=== PATIENT | female | born 1970 | race Caucasian/White ===

== ENCOUNTER 2018-03-14 21:43 | Inpatient (IN) ==
[2018-03-14 22:23] LABS: BASO# 0.02 X1000 (0.0-0.2); BASO% 0.2 % (0.0-0.8); EOS# 0.02 X1000 (0.0-0.7); EOS% 0.2 % (0.0-10.0); HEMOGLOBIN 12.4 g/dL (12.0-16.0); LYMPH% 8.4 % (20.5-51.1); MCH 27.3 PG (27-31); MCHC 32.6 g/dL (33-37); MCV 83.7 FL (81-99); MONO# 0.54 X1000 (0.11-0.59); MONO% 6.5 % (1.7-9.3); MPV 10.6 FL (7.4-10.4); NEUT# 7.01 X1000 (1.4-6.5); NEUT% 84.7 % (42.2-75.2); PLT 462 X1000 (130-400); RBC 4.54 XMIL (4.2-5.4); RDW 21.7 % (11.5-14.5); WBC 8.29 X1000 (4.8-10.8)
[2018-03-14 22:37] LABS: ESTIMATED GFR > 60
[2018-03-14] MEDS ORDERED: NS 1,000 ML IV ONE (22:58)
[2018-03-14] MEDS ORDERED: STADOL IV ONE (22:59)
[2018-03-14] MEDS ORDERED: ZOFRAN IV ONE (22:59)
[2018-03-14 23:06] LABS: AGAP 21; ALB/GLOB RATIO 1.4; ALBUMIN 4.7 g/dL (3.5-5.0); ALKALINE PHOSPHATASE 115 U/L (32-104); BUN 8 mg/dL (8-22); CALCIUM 9.2 mg/dL (8.8-10.2); CHLORIDE 89 mmol/L (98-107); COSMO 264; CREATININE 0.5 mg/dL (0.5-0.9); GLUCOSE 113 mg/dL (70-104); GOT 53 U/L (10-30); GPT 30 U/L (10-36); LIPASE 25 U/L (13-60); POTASSIUM 3.2 mmol/L (3.5-5.1); SODIUM 132 mmol/L (136-145); TCO2 22 mmol/L (25-35); TOTAL BILIRUBIN 0.26 mg/dL (0.20-1.00); TOTAL PROTEIN 8.1 g/dL (6.3-8.3)
[2018-03-15] MEDS ORDERED: STADOL IV ONE (00:26)
--- NOTE | 2018-03-15 00:27 | PROVIDER DOCUMENTATION ---
HPI-Abdominal Pain/GI Problem - General Chief Complaint: Abdominal Pain Stated Complaint: abd pain Time Seen by Provider: 03/14/18 22:31 Source: patient Allergies/Adverse Reactions: Patient Allergies Allergy/AdvReac Type Severity Reaction Status Date / Time morphine AdvReac Severe HIVES Verified 12/13/16 10:37 hydromorphone [From Dilaudid] AdvReac HIVES Verified 12/13/16 10:38 Home Medications: Home Medication List Medication Instructions Recorded Confirmed Last Taken Type Alprazolam [Xanax] 0.5 mg PO PRN PRN 12/13/16 02/24/17 02/24/17 History Iron,Carbonyl [Iron] 65 mg PO DAILY 12/13/16 02/24/17 02/23/17 History Lisinopril/Hydrochlorothiazide 1 each PO DAILY 12/13/16 02/24/17 02/24/17 History [Lisinopril-Hctz 20-12.5 mg Tab] Sertraline HCl [Zoloft] 100 mg PO HS 12/13/16 02/24/17 02/23/17 History - History of Present Illness-ABD Nature of Presenting Problems: Patient is a 47 yowf who complains of generalized abdominal pain associated with n/v x 3 hours. Denies fever or any other symptoms. Pt is non-toxic in appearance. Had hysterectomy by Dr. Ramon 2 months ago. Abdominal Pain Onset Location: reports: generalized abdomen Pain Radiation: reports: no radiation Quality of Pain: reports: stabbing Severity in ED: reports: severe Onset/Duration: reports: 1-3 hours ago Timing: reports: still present, getting worse Activities at Onset: reports: none Last BM: this afternoon Dark Stools Present?: reports: none noticed Rectal Bleeding: reports: none Rectal Pain: reports: none Review of Systems - Adult - REVIEW OF SYSTEMS - ADULT Constitutional: denies: chills, fever Eyes: reports: no symptoms reported Ears, Nose, Mouth & Throat: reports: no symptoms reported Cardiovascular: reports: no symptoms reported Respiratory: reports: no symptoms reported Gastrointestinal: reports: see HPI, abdominal pain, nausea, vomiting. denies: hematemesis, constipation, diarrhea Genitourinary: denies: dysuria, flank pain Musculoskeletal: reports: no symptoms reported Integumentary: reports: no symptoms reported Neurological: reports: no symptoms reported Psychiatric: reports: no symptoms reported Endocrine: reports: no symptoms reported Hematologic/Lymphatic: reports: no symptoms reported Allergic/Immunologic: reports: no symptoms reported All Other Systems: Reviewed and Negative Past History - Adult - PAST MEDICAL HISTORY-ADULT Review of Records: reports: Old Records Reviewed, Nursing Assessment Review, Medications Reviewed, Social history reviewed & non-contributory. Major Childhood Illnesses: reports: denies history Cardiovascular: reports: HTN Respiratory: reports: denies history Gastrointestinal: reports: denies history Obstetrical/Gynecological: reports: denies history Genitourinary: reports: denies history Musculoskeletal: reports: denies history Neurological: reports: denies history Psychiatric: reports: denies history Endocrine/Immune: reports: denies history Other Conditions: reports: denies history - PRIOR SURGERIES/PROCEDURES Surgical/Procedure History: reports: hysterectomy - FAMILY HISTORY Family History: reviewed, not pertinent - SOCIAL HISTORY Smoking: cigarettes, less than 1 pack/day Physical Exam-General - PHYSICAL EXAM-ADULT Initial Vital Signs Reviewed: Yes - CONSTITUTIONAL General Appearance: alert, moderate distress. negative: lethargic, slow to respond - EYES Eyes: PERRL/EOMI, pink conjunctivae - HEAD, EARS, NOSE, MOUTH & THROAT HENMT: normocephalic/atraumatic, moist mucous membranes - NECK Neck: full range of motion, supple, normal inspection - RESPIRATORY Respiratory: chest non-tender, lungs clear, normal breath sounds, no pleuratic chest pain, no respiratory distress, no accessory muscle use - CARDIOVASCULAR Cardiovascular: regular rate, rhythm, no gallop, no murmur - GASTROINTESTINAL (ABDOMEN) Abdominal Exam: normal bowel sounds, soft, no organomegaly, no pulsatile mass, guarding, tenderness (Diffuse-to light palpation). negative: distended, rigid - LYMPHATIC Lymphatic: no adenopathy - MUSCULOSKELETAL Back Exam: normal inspection, no CVA tenderness Extremity: normal range of motion, non-tender, normal inspection - SKIN Integumentary: normal color, normal turgor, warm/dry. negative: cyanosis, diaphoresis, jaundice, mottled, pallor - NEUROLOGIC Neurologic: grossly normal, no motor/sensory deficits - PSYCHIATRIC Psych/Mental Status: normal mood/affect, normal thought content, normal thought process, oriented x 3 Progress - PLAN OF CARE/RESULTS Progress/Plan/Lab Results: Vital Signs - 8 hr 03/14/18 21:54 Temperature 97.8 F Pulse Rate 100 H Respiratory Rate 20 Blood Pressure 110/74 O2 Sat by Pulse Oximetry 100 Laboratory Results - last 24 hr 03/14/18 03/14/18 22:03 22:03 WBC 8.29 RBC 4.54 Hgb 12.4 Hct 38.0 MCV 83.7 MCH 27.3 MCHC 32.6 L RDW Std Deviation 21.7 H Plt Count 462 H MPV 10.6 H Immature Gran % (Auto) 0.0 Neut % (Auto) 84.7 H Lymph % (Auto) 8.4 L Bennett % (Auto) 6.5 Eos % (Auto) 0.2 Baso % (Auto) 0.2 Immature Gran # (Auto) 0.00 Neut # (Auto) 7.01 H Lymph # (Auto) 0.70 L Bennett # (Auto) 0.54 Eos # (Auto) 0.02 Baso # (Auto) 0.02 Sodium 132 L Potassium 3.2 L Chloride 89 L Carbon Dioxide 22 L Anion Gap 21 BUN 8 Creatinine 0.5 Estimated GFR/1.73 m2 > 60 BUN/Creatinine Ratio 16 Glucose 113 H Calculated Osmolality 264 Calcium 9.2 Total Bilirubin 0.26 AST 53 H ALT 30 Alkaline Phosphatase 115 H Total Protein 8.1 Albumin 4.7 Globulin 3.4 Albumin/Globulin Ratio 1.4 Lipase 25 Orders Category Date Time Status NPO Diet 03/14/18 22:[address] ABD/PELVIS W/IV CONT ONLY [CT] Stat Exams 03/14/18 23:26 Taken CBC WITH DIFF [HEME] Stat Lab 03/14/18 22:03 Completed COMPREHENSIVE METABOLIC PANEL [CHEM] Stat Lab 03/14/18 22:03 Completed LIPASE [CHEM] Stat Lab 03/14/18 22:03 Completed URINALYSIS [URINALYSIS] Stat Lab 03/14/18 22:01 Uncollected 0.9% Sodium Chloride Inj [Ns] 1,000 ml Med 03/14/18 22:58 Discontinued IV 999 mls/hr Butorphanol [Stadol] Med 03/14/18 22:59 Discontinued 1 mg IV NOW ONE Ondansetron [Zofran] Med 03/14/18 22:59 Discontinued 4 mg IV NOW ONE Abd Pain/OB <20 weeks Stat Oth 03/14/18 22:[address] Bender who requests that pt be admitted to hospitalist service. Spoke with Dr. Nobles who accepted admission. States to hold NG tube at this time since pt has not vomited since receiving meds. Discussed admission plan with pt who is in agreement. Dr. Bender and Dr. Nobles aware of CT results. Ellen, hospitalist VFX ARTIST aware that Dr. Bender wished to be notified of patient's lactate level. Pt did receive 500 ml normal saline prior to lactate being drawn and Ellen is aware of this. Ellen states she will call Dr. Bender with result. Pt reports improvement in pain, NAD noted at this time. Result Diagrams: 03/14/18 22:03 03/14/18 22:03 - REASSESSMENT Reassessment #1 Time Reassessed: 12:30 Status: improving (Pain improved but requests another dose of pain medication.) - CT/MRI 1 CT Study: Abdomen, Pelvis (Impression per [facility]: 1. Abnormal small bowel loops in the pelvis may reflext imflammation and/or mesenteric volvulus, with mild small bowel obstruction. 2. Small ascites likely secondary to inflammatory/ obstructive changes. No free air. 3. Fatty liver with enlargement.) - CONSULTS/PCP/HOSPITALIST Notification #1 *Consult/PCP/Hospitalist*: Dr. Bender Time Discussed: 00:40 Consult Disposition: Admit (to [facility]- also recommends lactate level, no further recommendations) #2 Consult: Dr. Nobles Time Discussed: 00:45 Consult Disposition: Will see in ED, Admit Departure - Departure Date of Disposition Decision: 03/15/18 Time of Disposition Decision: 00:00 DIAGNOSIS: Bowel obstruction Qualifiers: Intestinal obstruction type: unspecified Intestinal obstruction extent: partial Qualified Code(s): K56.600 - Partial intestinal obstruction, unspecified as to cause Abdominal pain Qualifiers: Abdominal location: generalized Qualified Code(s): R10.84 - Generalized abdominal pain Disposition: ADMITTED INPATIENT 09 Certified Medical Emergency: Emergent Condition: Stable - Critical Care Note This patient required my direct & personal management of CC.: No Attestation - Physician/ RADHA Attestation Patient care was provided by Advanced Practice Provider:: Yes Advanced Practice Provider:: Irvin Sharp Advanced Practice Provider documentation review:: The Mid-level provider documentation, treatment plan and medical decision making was reviewed by the physician who agrees with all treatment and medical decision making by the MLP. The physician spent face to face time with patient:: No Advanced Practice Provider documentation review:: Supervising physician onsite and consulted in the evaluation and care of this patient. The physician did not have a face to face encounter with the patient.
[2018-03-15] MEDS ORDERED: DEMEROL IV ONE ×2 (01:10→03:12)
[2018-03-15] MEDS ORDERED: BLISTEX MEDICATED BERRY LIP BALM TOP PRN (01:11)
[2018-03-15] MEDS ORDERED: POTASSIUM CHLORIDE 40 MEQ/SWI 40 MEQ/100 ML IVPB IV ONE (01:31)
[2018-03-15] MEDS ORDERED: MAGNESIUM SULFATE 1 GM/D5W 1 GM/100 ML IVPB IV ONE (02:13)
[2018-03-15 02:45] LABS: INR 0.97; PROTIME 13.6 Seconds (11.0-16.0); PTT 25.9 Seconds (22.3-41.8)
[2018-03-15] MEDS: NS 1,000 ML IV SCH ×2 (02:45→09:19)
[2018-03-15] MEDS ORDERED: DEMEROL ONE (02:54)
[2018-03-15] MEDS ORDERED: SODIUM CHLORIDE 0.9% INJ PRN (03:16)
[2018-03-15] MEDS ORDERED: PHENERGAN IV PRN (03:16)
[2018-03-15 03:57] LABS: URINE SOURCE CLEAN CATCH
[2018-03-15 04:07] LABS: BILIRUBIN URINE NEGATIVE (NEGATIVE); BLOOD URINE NEGATIVE (NEGATIVE); COLOR YELLOW; GLUCOSE URINE NEGATIVE (NEGATIVE); KETONE URINE TRACE mg/dL (NEGATIVE); LEUKOCYTES URINE NEGATIVE (NEGATIVE); NITRITE URINE NEGATIVE (NEGATIVE); PROTEIN URINE TRACE mg/dL (NEGATIVE); SP GRAVITY URINE > 1.050; TURBIDITY URINE CLEAR (CLEAR); UR EPITHELIAL CELLS <10 /HPF (<10); URINE BACTERIA NEGATIVE /HPF; URINE RBC <10 /HPF (<10); URINE WBC <10 /HPF (<10); UROBILINOGEN URINE NORMAL (NORMAL)
[2018-03-15] MEDS: POTASSIUM CHLORIDE 20 MEQ/SWI 20 MEQ/100 ML IVPB IV SCH ×2 (04:09→06:30)
[2018-03-15] MEDS: ZOSYN 3.375 GM in NS 50 ML IV SCH ×4 (04:10→22:15)
--- NOTE | 2018-03-15 05:38 | GENERAL SURGERY CONSULTATION ---
DATE: 03/15/2018 REQUESTING PHYSICIAN: Emergency Department and hospitalist. REASON FOR CONSULTATION: Consult is concerning abdominal pain. HISTORY OF PRESENT ILLNESS: A 47-year-old female presenting with a 2-hour history of sudden onset abdominal pain. She had a hysterectomy 2 months ago and has a history of IBS. She did have some diarrhea starting today. She has had persistent pain. She did have a CT scan, which official report is still pending. But there is abnormal appearing small bowel loops in the pelvis that may reflect inflammatory and/or mesenteric volvulus with some associated ascites. Given this, I was asked to weigh an opinion. The patient has been admitted by the hospitalist service, is currently still complaining of pain mostly in the upper quadrant, but some lower quadrants. PAST MEDICAL HISTORY: Hypertension, anxiety, and panic disorder. PAST SURGICAL HISTORY: Recent hysterectomy. HOME MEDICATIONS: Xanax, iron, lisinopril, and Zoloft. ALLERGIES: Morphine and Dilaudid. FAMILY HISTORY: Reviewed with patient, noncontributory. SOCIAL HISTORY: Current smoker. REVIEW OF SYSTEMS: A full 10-point review of systems obtained negative as specified in HPI. PHYSICAL EXAM: Vital Signs: Patient is currently afebrile. Her vital signs are stable. General: female looks stated age. Appears to be uncomfortable. HEENT: Normocephalic, atraumatic. Pupils equal, round, reactive to light. Mucous membranes moist. Oropharynx benign. Neck: Supple. Trachea midline. Cardiovascular: Regular rate and rhythm. Lungs: Grossly clear. Abdomen: Soft. Tenderness to palpation diffusely at this time. I would not give her any peritoneal signs. Extremities: Moves all extremities. Neurologic: Grossly intact. Skin: No signs of jaundice. Vascular: All extremities perfused. LABORATORY: White blood count is normal at 8, hematocrit is 38, platelet count 462,000. Sodium is 132, potassium is 3.2. Alkaline phosphatase is elevated at 115. Lactic acid is not elevated on [address] scan as noted above. ASSESSMENT AND PLAN: A 47-year-old with abdominal pain and abnormal appearing bowel with possible volvulus versus inflammatory bowel. Abdominal pain. At this time, given her symptoms and the CT scan finding, we will plan on surgical intervention this afternoon. Discussed with her daughter, who is a nurse, the risks, benefits, alternatives of the procedure, risks including, but not limited to bleeding, infection, risk of anesthesia, risk of bowel injury, risk of anastomotic leak, the resection, risk of having change from a diagnostic laparoscopy to exploratory laparotomy, and this was all discussed. We will plan on doing this afternoon. The patient is already on antibiotics. cc: Tolu Bender MD
[2018-03-15] MEDS: DEMEROL IV PRN ×4 (06:32→22:14)
--- NOTE | 2018-03-15 07:50 | EKG Report ---
Test Performed on : 03/15/2018 03:21:26 AM Test Reason : Abdominal Pain,SBO, Surg Patient Blood Pressure : / mmHG Vent. Rate : 084 BPM Atrial Rate : 084 BPM P-R Int : 158 ms QRS Dur : 096 ms QT Int : 430 ms P-R-T Axes : 048 047 018 degrees QTc Int : 508 ms Normal sinus rhythm. Normal ECG No previous ECGs available Confirmed by Jeff BURNS, Pablo Nassar ([id number]) on 03/15/2018 4:48:27 PM
--- NOTE | 2018-03-15 08:14 | Diag Imaging Result Doc PS360 ---
EXAM: CT ABD/PELVIS W/IV CONT ONLY INDICATION: abd pain TECHNIQUE: This exam was performed using automated exposure control, adjustment of mA or kV according to patient size, and/or use of iterative reconstruction technique. COMPARISON: None. FINDINGS: There is suggestion of mild hepatic steatosis. The liver is enlarged measuring up to 21.6 cm in craniocaudal length. The gallbladder, spleen, pancreas, and adrenal glands are unremarkable. The kidneys and urinary bladder are unremarkable. There are loops of distal small bowel in the pelvis exhibiting wall thickening and adjacent mesenteric edema. Proximal to this, there are distended loops of small bowel with air-fluid levels. Consider enteritis with associated ileus. There is questionable twisting of the mesentery associated with the thickened loops of distal small bowel. Mesenteric volvulus cannot completely be excluded with associated mild bowel obstruction. There is small volume ascites in the pelvis as well as tracking around the liver and the spleen. The remainder of the GI tract is essentially unremarkable. The appendix is normal. There is degenerative disc disease at L5-S1. The bony structures are intact. IMPRESSION: 1.Thickening of several loops of distal small bowel in the pelvis with adjacent mesenteric edema and distention of the more proximal loops of small bowel. Consider enteritis with associated ileus versus mesenteric volvulus with proximal partial bowel obstruction. 2.Other incidental/nonacute findings detailed above. Electronically signed by Miguel Rivera 03/15/2018 8:11 AM
--- NOTE | 2018-03-15 08:54 | HISTORY AND PHYSICAL ---
PRIMARY CARE PROVIDER: Dr. Isaac Romero. CHIEF COMPLAINT: Abdominal pain. HISTORY OF PRESENT ILLNESS: Ms. Marley is a 47-year-old female with a past medical history most notable for hypertension, irritable bowel syndrome, anemia, depression and anxiety. She presented to the ER this evening with complaints of generalized abdominal pain that started around 6 p.m. She states that her stomach had felt kind of achy all day though at 6 p.m. became sharp in nature and was reportedly a 10/10. The patient states that the pain medicine has helped her pain. It was a 6/10 at the time of my examination. She has reported some nausea, did report one vomiting episode. After arrival to the ER, she denied any hematemesis. The patient did not report any diarrhea to me, though according to her daughter who was present at bedside at the time of my examination, she stated that she has informed her that since her hysterectomy in December that her bowel patterns have been different, that she has periods of loose stools and then will have periods of more formed stools. Her last BM was 2 p.m. yesterday. She denies any hematochezia or melena. The patient states that since her abdominal pain started that she has not been able to pass any gas. She denies any fever, body aches, or chills. She also denies any headache, chest pain, shortness of breath, dysuria, urinary frequency, or pain, numbness, tingling, or swelling in extremities. She denies any history of gastrointestinal bleeding, DVT, or pulmonary embolism. Upon evaluation in the ER, the patient was reporting quite a bit of pain, though this has improved since her initial arrival. She does have generalized abdominal pain noted, though this is worse in the right upper and left quadrants. This area was tender upon palpation, though there was no rebound tenderness noted. Bowel sounds were present in all 4 quadrants, were normoactive. The patient has been afebrile. She does not have any leukocytosis noted, though her lactate was slightly elevated at 1.9. She does appear to have some dehydration noted. Sodium, potassium, chloride, and magnesium levels were all slightly low, though urinalysis showed no sign of infection--it was only positive for trace protein and ketones. Given her abdominal pain and other reported symptoms, they did perform a CT of the abdomen and pelvis with IV contrast. There were findings of abnormal small bowel loops in the pelvis which may reflect inflammation and/or mesenteric volvulus with a mild small bowel obstruction. It was also noted that she had some small ascites likely secondary to inflammation/obstructive changes, though there was no free air. There was fatty liver with enlargement. Dr. Bender with Surgery has been notified. The patient will be placed inpatient admission for further treatment and evaluation. REVIEW OF SYSTEMS: A 14-point review of systems was conducted with the patient and all were negative except for pertinent positives mentioned in the above HPI. PAST MEDICAL HISTORY: 1. Irritable bowel syndrome. 2. Anemia. 3. Depression. 4. Anxiety. 5. Hypertension. 6. Hemorrhoids. PAST SURGICAL HISTORY: 1. Tubal ligation. 2. Hemorrhoidectomy. 3. Hysterectomy. SOCIAL HISTORY: The patient does smoke 1 pack per day. She did report daily alcohol use of a 6- pack of beer a day, though she did deny any history of withdrawal symptoms when she does go a period without having alcohol. There was no known illicit drug use. 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 FAMILY HISTORY: Positive for her mother having a history of anxiety and depression. Her father at age 38 with heart disease. ALLERGIES: The patient has allergies to morphine and hydromorphone. HOME MEDICATIONS: 1. Lisinopril/hydrochlorothiazide 20-0.5 mg tablet one p.o. daily. 2. Sertraline 100 mg p.o. daily. 3. The patient states she did previously take Xanax for anxiety though has not gotten this prescription recently filled. DIAGNOSTIC DATA/LABORATORY RESULTS: White blood cell count is 8290, hemoglobin 12.4, hematocrit 38, platelet count 462. PT 13.6, INR 0.97, PTT 25.9. Sodium 132, potassium 3.2, chloride 89, serum bicarbonate is 22, BUN 8, creatinine 0.5, glucose 113, calcium 9.2, magnesium 1.2. Total bilirubin is 0.26, AST 53, ALT 50, alkaline phosphatase is 115. Lipase 25. Plasma lactate was 1.9 with a repeat of 1 approximately 3 hours later. Urinalysis was obtained via clean catch, was positive for trace protein and ketones. It was negative for glucose, blood, nitrites, leukocytes, white blood cells, or bacteria. EKG showed normal sinus rhythm at a rate of 84 with a QTc of 508. CT of the abdomen and pelvis with IV contrast did show abnormal small bowel loops in the pelvis which may reflect inflammation and/or mesenteric volvulus with mild small bowel obstruction. There was also small ascites likely secondary to inflammation/obstructive changes, though there was no free air noted. There is also fatty liver with enlargement. There were other nonacute findings. Please see CT report for these. PHYSICAL EXAMINATION: VITAL SIGNS: Temperature 98.2, heart rate 78, respirations 16, blood pressure 100/74 with oxygen saturation of 100%. GENERAL: Ms. Marley is a very pleasant 47-year-old female. She was resting in the ER stretcher though she did appear to be in quite a bit of discomfort from her abdominal pain. She was in no acute distress. She was awake, alert, and able to answers all questions appropriately. HEENT: Head is atraumatic, normocephalic. Pupils are equal, round, and reactive, were 3 mm bilaterally. Oral mucosa is slightly dry. NECK: Supple, trachea midline. CARDIOVASCULAR: The patient has S1, S2. No murmurs, gallops, or rubs appreciated, with a regular rate and rhythm. PULMONARY: The patient has symmetrical chest expansion bilaterally. Lung sounds were clear to auscultation in bilateral full galvan. ABDOMEN: Soft, does not appear to be distended. The patient does have generalized abdominal tenderness noted though this is worse in the right and left upper quadrants, though there was no rebound tenderness noted. Bowel sounds were present in all 4 quadrants, were normoactive. EXTREMITIES: No cyanosis, clubbing, or edema noted. Pulse, motor and sensory were intact in all extremities. Radial pulses and pedal pulses were 2+ bilaterally. Capillary refill is less than 3. INTEGUMENTARY: The patient's skin is pink, warm and dry. NEUROLOGICAL: The patient is alert and oriented x4. There do not appear to be focal neurologic deficits noted. ASSESSMENT AND PLAN: 1. A small bowel obstruction with possible volvulus versus inflammatory bowel. For treatment and evaluation of this, we have placed the patient n.p.o. at this time. We have placed a consult with Dr. Bender with Surgery. From what I understand, Dr. Bender has evaluated the patient this morning and is planning to take her to surgery this afternoon. We will continue with pain medications of Demerol. We have ordered nausea medications of Phenergan and Zofran. We will continue with fluid hydration as well as we also placed antibiotic coverage with Zosyn. Blood cultures have been obtained, as well. We will continue to monitor her condition closely and continue to follow. 2. Abdominal pain with nausea and vomiting. Will continue with treatment as above for #1. 3. Fluid volume depletion. We have ordered the patient to receive gentle hydration with normal saline at 125 mL/h. She received a 1 L normal saline bolus in the ER previously. 4. History of hypertension. The patient was borderline hypotensive in the ER. Her blood pressure is the low 100s systolically. Given this, we will hold her lisinopril and hydrochlorothiazide. Will monitor her blood pressure closely and treat if necessary. 5. History of anxiety and depression. 6. DVT prophylaxis will be provided with SCDs. The patient will be placed on the surgical floor with telemetry. She will have vital signs q.4 h. Will do strict intake and output, incentive spirometry. Will do q.4 h. fingerstick blood sugars. She will remain n.p.o. The patient did have some mild electrolyte abnormalities of potassium of 3.2 and magnesium of 1.2. These have been replaced. We have ordered for repeat labs later on in the morning. The patient does have a history of daily alcohol use of a 6-pack of beer. She denies any history of withdrawal symptoms when going without drinking, though we will continue to monitor her closely for symptoms of alcohol withdrawal. Further orders and recommendations pending hospital course, diagnostic studies, and physician evaluation. Dictated by CHRISTINA Arce for Spencer Nobles MD cc: Spencer Nobles MD
[2018-03-15 10:35] LABS: BASO# 0.03 X1000 (0.0-0.2); BASO% 0.2 % (0.0-0.8); EOS# 0.07 X1000 (0.0-0.7); EOS% 0.5 % (0.0-10.0); HEMATOCRIT 37.2 % (37.0-47.0); HEMOGLOBIN 11.8 g/dL (12.0-16.0); LYMPH# 0.95 X1000 (1.2-3.4); LYMPH% 7.2 % (20.5-51.1); MCH 27.4 PG (27-31); MCHC 31.7 g/dL (33-37); MCV 86.5 FL (81-99); MONO# 0.98 X1000 (0.11-0.59); MONO% 7.5 % (1.7-9.3); MPV 10.3 FL (7.4-10.4); NEUT% 84.6 % (42.2-75.2); PLT 373 X1000 (130-400); RDW 22.4 % (11.5-14.5); WBC 13.13 X1000 (4.8-10.8)
[2018-03-15 10:43] LABS: LYMPHS 16 % (21-51); MONO 2 % (1-9); SEGS 82 % (42-75)
[2018-03-15 11:07] LABS: AGAP 13; BUN 8 mg/dL (8-22); CALCIUM 8.5 mg/dL (8.8-10.2); CHLORIDE 96 mmol/L (98-107); COSMO 266; CREATININE 0.5 mg/dL (0.5-0.9); ESTIMATED GFR > 60; GLUCOSE 122 mg/dL (70-104); MAGNESIUM 1.6 mg/dL (1.5-2.7); SODIUM 133 mmol/L (136-145); TCO2 24 mmol/L (25-35)
[2018-03-15] MEDS ORDERED: DIPRIVAN 1% ONE ×2 (14:36→17:27)
[2018-03-15] MEDS ORDERED: QUELICIN (DOSE) ONE (14:36)
[2018-03-15] MEDS ORDERED: XYLOCAINE-MPF 2% ONE (14:36)
[2018-03-15] MEDS ORDERED: SENSORCAINE-MPF 0.5%/EPI 1:200,000 ONE (16:18)
[2018-03-15] MEDS ORDERED: LR 1,000 ML ONE (16:18)
[2018-03-15] MEDS ORDERED: FENTANYL ONE (17:21)
[2018-03-15] MEDS ORDERED: MARCAINE 0.25% PF ONE (17:51)
[2018-03-15] MEDS ORDERED: SODIUM CHLORIDE 0.9% 20 ML ONE (17:51)
[2018-03-15] MEDS ORDERED: EXPAREL 1.3% ONE (17:52)
[2018-03-15] MEDS ORDERED: NEOSTIGMINE ONE (18:07)
[2018-03-15] MEDS ORDERED: ROBINUL ONE (18:07)
[2018-03-15 18:34] LABS: URINE SOURCE CATH
[2018-03-15 18:40] LABS: BILIRUBIN URINE NEGATIVE (NEGATIVE); BLOOD URINE NEGATIVE (NEGATIVE); COLOR YELLOW; GLUCOSE URINE NEGATIVE (NEGATIVE); KETONE URINE NEGATIVE (NEGATIVE); LEUKOCYTES URINE NEGATIVE (NEGATIVE); NITRITE URINE NEGATIVE (NEGATIVE); PROTEIN URINE TRACE mg/dL (NEGATIVE); SP GRAVITY URINE 1.035; TURBIDITY URINE CLEAR (CLEAR); UROBILINOGEN URINE NORMAL (NORMAL)
[2018-03-15 18:42] LABS: UR EPITHELIAL CELLS <10 /HPF (<10); URINE BACTERIA NEGATIVE /HPF; URINE WBC <10 /HPF (<10)
[2018-03-15] MEDS ORDERED: OFIRMEV 1000 MG/ISOTONIC SOLN 1,000 MG/100 ML BOTTLE ONE (18:50)
[2018-03-15] MEDS ORDERED: VERSED ONE (19:21)
--- NOTE | 2018-03-15 21:24 | OPERATIVE NOTE ---
PROCEDURE DATE: 03/15/2018 PREOPERATIVE DIAGNOSIS: Abdominal pain. POSTOPERATIVE DIAGNOSIS: Ischemic bowel secondary to adhesions. PROCEDURE: 1. Diagnostic laparoscopy converted to exploratory laparotomy. 2. Small-bowel resection with stapled [id number] functional end-to-end anastomosis. SURGEON: Tolu Bender MD. REJOINER: Bill Lloyd MD. Dr. Lloyd assisted for the entirety of the case. His presence was crucial for the completion of the case. ANESTHESIA: General endotracheal. INTRAOPERATIVE FINDINGS: A single band of adhesions down in her pelvis that was causing an ischemic area in her distal ileum. COMPLICATIONS: None at time of this dictation. ESTIMATED BLOOD LOSS: 50 mL. SPECIMENS REMOVED: Small bowel and fluid for culture. BRIEF HISTORY: This is a 47-year-old female presenting with abdominal pain. She had an abnormal CT scan. It was felt she would benefit from a diagnostic laparoscopy with possible exploratory laparotomy. We did discuss extensively and documented in the chart the risks, benefits, and alternatives of the procedure. All questions were answered. DESCRIPTION OF PROCEDURE: After informed consent was obtained, the patient was brought to the operative theater, transferred to the operating table, and placed in supine position. General endotracheal anesthesia was then performed without complication. A formal time- out was then performed, confirming patient, date, and procedure. All were in agreement at that time We initially started laparoscopically and placed an infraumbilical 12 mm trocar, connected to insufflation, and pneumoperitoneum was achieved. We placed an additional 5 mm trocar lateral to this on the right side. Examining the abdomen, we found a significant amount of ascites. There was a dense adhesion down in the pelvis, which I was not able to free up laparoscopically. There was some question of irritated bowel and ischemic bowel. Therefore, given these findings, I elected to do an exploratory laparotomy, converted by making a midline incision. We cultured some of the fluid and suctioned out the fluid. Then using electrocautery, we were able to free up the adhesion and found a segment of approximately 10 cm of ileum that was ischemic and nonviable. We elected to resect this using a SPIKE stapler and taking the mesentery with the LigaSure. We then fashioned a hkqo-te-aarg functional end-to-end anastomosis using an 80 mm stapler with good results. We oversewed the staple line. We closed the mesenteric defect. We irrigated out the abdomen copiously. It should be noted that we ran the small bowel and did not find any other pathology. We then closed the peritoneum with a running chromic , closed the fascia with a looped PDS started on either end, and closed the skin with talha. The patient tolerated the procedure well and was transferred back to the recovery room in stable condition. cc: MD AMY Figueroa
[2018-03-16] MEDS: DEMEROL IV PRN ×6 (01:45→22:22)
[2018-03-16] MEDS ORDERED: BENADRYL IV ONE (03:55)
[2018-03-16] MEDS: ZOSYN 3.375 GM in NS 50 ML IV SCH ×4 (04:14→22:22)
--- NOTE | 2018-03-16 07:19 | GENERAL SURGERY PROGRESS NOTE ---
DATE: 03/16/2018 SUBJECTIVE: The patient seems to be doing okay. Her pain seems relatively well controlled. OBJECTIVE: Vital Signs: The patient is currently afebrile. Her vital signs are stable. General: No acute distress. Cardiovascular: Regular rate and rhythm. Lungs: Grossly clear. Abdomen: Soft, appropriately tender. NG tube in place. ASSESSMENT AND PLAN: A 47-year-old status post exploratory laparotomy and small bowel resection. 1. Postoperative state. At this time, the patient is currently postoperative day number 1. We will start her on heparin. Start her on Protonix intravenously. We will keep her on intravenous fluids for resuscitation. We will keep the nasogastric tube in place until she has return of bowel function. Hopefully, she can get up and ambulate today or at least sit in a chair. We will continue routine postoperative care. 2. Multiple medical comorbidities, currently being managed by the hospitalist service. 3. History of alcohol abuse. At this time, we will need to monitor for any kind of withdrawal symptoms. The hospitalists are aware. cc: Tolu Bender MD
[2018-03-16] MEDS: NS 1,000 ML IV SCH ×2 (09:20→18:05)
[2018-03-16] MEDS: PERIDEX MT SCH ×2 (09:24→22:22)
[2018-03-16 10:34] LABS: BASO# 0.03 X1000 (0.0-0.2); BASO% 0.3 % (0.0-0.8); EOS# 0.09 X1000 (0.0-0.7); EOS% 0.8 % (0.0-10.0); HEMATOCRIT 32.5 % (37.0-47.0); HEMOGLOBIN 9.7 g/dL (12.0-16.0); IMM GRAN# 0.02 X1000 (0.0-0.04); IMM GRAN% 0.2 % (0.0-0.5); LYMPH# 0.92 X1000 (1.2-3.4); LYMPH% 8.6 % (20.5-51.1); MCHC 29.8 g/dL (33-37); MCV 90.5 FL (81-99); MONO# 1.26 X1000 (0.11-0.59); MONO% 11.8 % (1.7-9.3); MPV 9.8 FL (7.4-10.4); NEUT# 8.34 X1000 (1.4-6.5); NEUT% 78.3 % (42.2-75.2); PLT 289 X1000 (130-400); RBC 3.59 XMIL (4.2-5.4); RDW 22.4 % (11.5-14.5); WBC 10.66 X1000 (4.8-10.8)
[2018-03-16 10:46] LABS: AGAP 11; BUN 8 mg/dL (8-22); CALCIUM 7.8 mg/dL (8.8-10.2); CHLORIDE 102 mmol/L (98-107); COSMO 272; CREATININE 0.4 mg/dL (0.5-0.9); ESTIMATED GFR > 60; GLUCOSE 92 mg/dL (70-104); POTASSIUM 3.3 mmol/L (3.5-5.1); SODIUM 137 mmol/L (136-145); TCO2 24 mmol/L (25-35)
[2018-03-16] MEDS ORDERED: ATIVAN IV PRN (10:57)
[2018-03-16 11:02] LABS: HYPOCHROM 2+; LYMPHS 14 % (21-51); MONO 6 % (1-9); SEGS 80 % (42-75)
--- NOTE | 2018-03-16 11:25 | PROGRESS NOTE ---
DATE: 03/16/2018 SUBJECTIVE: The patient reports feeling fine. Denies any abdominal pain. She has not passed gas yet. OBJECTIVE: Vital Signs: Temperature 97.7, heart rate 82, respiratory rate 14, blood pressure 168/100, O2 saturation 100% on room air. General examination: This is a very pleasant, 47-year- old female, lying in bed in no acute distress. HEENT: Head is normocephalic, atraumatic. NG tube in place connected to suction. Neck: No JVD noted. No carotid bruits. No lymphadenopathy. No thyromegaly. Cardiovascular exam: S1, S2 heard. No murmurs, gallops, or rubs. Regular rate and rhythm. Respiratory exam: Clear bilaterally to auscultation. No work of breathing or using accessory muscles. Abdomen: Soft and nondistended. Mildly tender to palpation. Bowel sounds present. No organomegaly. Extremities: No clubbing, cyanosis, or edema. Peripheral pulses present in both legs. Neurological exam: The patient is alert and oriented x3. Moves 4 extremities. ASSESSMENT AND PLAN: 1. Small bowel obstruction status post laparoscopy converted to exploratory laparotomy with the small bowel resection and stable [id number] functional end-to-end anastomosis. Dr. Bender from General Surgery following this patient. He recommends to still keep the nasogastric tube. We will continue with intravenous fluids. 2. Hypertension. Blood pressure is high because she is not able to take anything by mouth because she is on nothing by mouth. We will provide Vasotec intravenous and see how this patient does. 3. History of anxiety and depression. The patient requests to have her iron brought back. We agree with that plan. 4. Disposition: We will continue to monitor this patient closely. We will follow the lead from General Surgery. cc: Mike Sanchez MD
[2018-03-16] MEDS: PROTONIX IV SCH (11:51)
[2018-03-16] MEDS: BENADRYL IV PRN (12:05)
[2018-03-16] MEDS: VASOTEC IV SCH (13:49)
[2018-03-16] MEDS: HEPARIN SUBQ SCH ×2 (13:50→22:22)
[2018-03-17] MEDS: VASOTEC IV SCH (00:58)
[2018-03-17] MEDS: NS 1,000 ML IV SCH ×2 (04:05→13:15)
[2018-03-17] MEDS: ZOSYN 3.375 GM in NS 50 ML IV SCH ×5 (04:06→21:52)
[2018-03-17] MEDS: DEMEROL IV PRN ×6 (04:13→23:59)
[2018-03-17] MEDS: PROTONIX IV SCH (05:48)
[2018-03-17] MEDS: SODIUM CHLORIDE 0.9% INJ SCH (05:48)
[2018-03-17] MEDS: HEPARIN SUBQ SCH ×4 (05:49→21:52)
[2018-03-17 06:21] LABS: BASO# 0.04 X1000 (0.0-0.2); BASO% 0.6 % (0.0-0.8); EOS# 0.22 X1000 (0.0-0.7); EOS% 3.1 % (0.0-10.0); HEMATOCRIT 29.6 % (37.0-47.0); HEMOGLOBIN 8.7 g/dL (12.0-16.0); LYMPH# 0.85 X1000 (1.2-3.4); LYMPH% 12.1 % (20.5-51.1); MCH 27.3 PG (27-31); MCHC 29.4 g/dL (33-37); MCV 92.8 FL (81-99); MONO# 0.66 X1000 (0.11-0.59); MONO% 9.4 % (1.7-9.3); NEUT# 5.27 X1000 (1.4-6.5); NEUT% 74.8 % (42.2-75.2); PLT 274 X1000 (130-400); RBC 3.19 XMIL (4.2-5.4); RDW 22.5 % (11.5-14.5); WBC 7.04 X1000 (4.8-10.8)
[2018-03-17 06:47] LABS: AGAP 10; BUN 6 mg/dL (8-22); CHLORIDE 103 mmol/L (98-107); COSMO 272; CREATININE 0.4 mg/dL (0.5-0.9); ESTIMATED GFR > 60; GLUCOSE 83 mg/dL (70-104); POTASSIUM 3.1 mmol/L (3.5-5.1); SODIUM 138 mmol/L (136-145); TCO2 25 mmol/L (25-35)
[2018-03-17] MEDS: PERIDEX MT SCH ×3 (09:55→21:53)
[2018-03-17] MEDS: BENADRYL IV PRN ×2 (10:53→19:50)
[2018-03-17] MEDS ORDERED: POTASSIUM CHLORIDE 60 MEQ in NS 500 ML IV ONE (11:28)
[2018-03-17] MEDS ORDERED: KLOR-CON PO ONE (11:41)
[2018-03-17] MEDS ORDERED: XANAX PO PRN (11:52)
[2018-03-17] MEDS: PRINZIDE 20/12.5MG PO SCH (12:21)
--- NOTE | 2018-03-17 12:58 | PROGRESS NOTE ---
DATE: 03/17/2018 SUBJECTIVE: Patient reports feeling fine. She had bowel movements yesterday. She is eating clear liquids today with no abdominal pain. No nausea or vomiting. OBJECTIVE: Vital Signs: Temperature 98.1 degrees, heart rate 89, respiratory rate 14, blood pressure 131/81, O2 saturation 95% on room air. General: This is a very pleasant, 47-year-old female sitting in the chair in no acute distress. HEENT: Head is normocephalic, atraumatic. Neck: No JVD noted. No carotid bruits. No lymphadenopathy. No thyromegaly. Cardiovascular: S1, S2 heard. No murmurs, gallops, or rubs. Regular rate and rhythm. Respiratory: Clear bilaterally to auscultation. No work of breathing or using accessory muscles. Abdomen: Soft, nondistended, bowel sounds present. No organomegaly. Extremities: No clubbing, cyanosis, or edema. Peripheral pulses present in both legs. Neurological: Patient alert and oriented x3. Moves 4 extremities and coherent speech. LABORATORY DATA: White cell count 7.04, hemoglobin 8.7, hematocrit 29.6, platelets 475,000. BMP remarkable for potassium 3.1. Calcium 8.0. ASSESSMENT AND PLAN: 1. Small bowel obstruction status post laparoscopy converted to exploratory laparotomy with small- bowel resection and stable nbwn-ft-obbs functional end-to-end anastomosis. General Surgery is following this patient. NG tube has been removed, yesterday, because patient had a bowel movement. Today, she is tolerating a clear liquid diet very well. At this point, we will continue with the same management and, of course, following recommendations from General Surgery. 2. Hypertension. Blood pressure is in the range of 130s and 100s the last 24 hours. The patient has been started on Vasotec yesterday because of high blood pressure but I think now that she is able to take medications by mouth. It is reasonable to restart blood pressure medications by mouth. 3. History of anxiety and depression. Xanax has been restarted today, considering that she is able to take medications by mouth. Also sertraline has been restarted as well. 4. Disposition. We will continue to monitor this patient closely, following the lead from General Surgery. cc: MD AMY Funez
--- NOTE | 2018-03-17 18:50 | Diag Imaging Result Doc PS360 ---
EXAM: ABDOMEN FLAT/UPRIGHT 03/17/2018 HISTORY: pain TECHNIQUE: Flat and upright abdomen COMMENT: There is gas and fluid distending multiple small bowel loops as well as parts of the colon. There is gas in the rectum. There is no evidence of organomegaly or mass. There are midline surgical skin clips. IMPRESSION: Ileus. Electronically signed by Ellis Aguilar 03/17/2018 6:47 PM
[2018-03-17] MEDS ORDERED: ZOLOFT PO SCH (21:00)
--- NOTE | 2018-03-18 01:34 | GENERAL SURGERY PROGRESS NOTE ---
DATE: 03/17/2018 SUBJECTIVE: She is doing well today. She is passing gas, tolerating clear liquid sips. PHYSICAL EXAMINATION: Abdomen: Soft. Cardiovascular: Normal rate. No fevers. Skin: Dressing is intact. LABORATORY DATA: White count is 7, hematocrit is 29. Creatinine is 0.4, potassium is low at 3.1. ASSESSMENT AND PLAN: A 47-year-old female status post exploratory laparotomy and bowel resection. She seems to be returning bowel function. Her potassium is being repleted. We will give her clear liquids and continue to follow along. cc: Audrey Kimble MD
[2018-03-18] MEDS: ZOSYN 3.375 GM in NS 50 ML IV SCH ×2 (03:41→09:09)
[2018-03-18] MEDS: DEMEROL IV PRN ×2 (03:51→07:52)
[2018-03-18] MEDS: HEPARIN SUBQ SCH (06:37)
[2018-03-18] MEDS: SODIUM CHLORIDE 0.9% INJ SCH (06:37)
[2018-03-18] MEDS: PROTONIX IV SCH (06:37)
[2018-03-18 06:44] LABS: BASO# 0.02 X1000 (0.0-0.2); BASO% 0.3 % (0.0-0.8); EOS# 0.33 X1000 (0.0-0.7); EOS% 5.6 % (0.0-10.0); HEMATOCRIT 29.7 % (37.0-47.0); HEMOGLOBIN 8.8 g/dL (12.0-16.0); LYMPH# 0.72 X1000 (1.2-3.4); LYMPH% 12.3 % (20.5-51.1); MCH 27.2 PG (27-31); MCHC 29.6 g/dL (33-37); MCV 91.7 FL (81-99); MONO# 0.63 X1000 (0.11-0.59); MONO% 10.8 % (1.7-9.3); NEUT# 4.15 X1000 (1.4-6.5); PLT 284 X1000 (130-400); RBC 3.24 XMIL (4.2-5.4); WBC 5.85 X1000 (4.8-10.8)
[2018-03-18 06:48] LABS: AGAP 12; BUN 3 mg/dL (8-22); CALCIUM 8.6 mg/dL (8.8-10.2); CHLORIDE 104 mmol/L (98-107); COSMO 273; CREATININE 0.4 mg/dL (0.5-0.9); ESTIMATED GFR > 60; GLUCOSE 79 mg/dL (70-104); POTASSIUM 3.3 mmol/L (3.5-5.1); SODIUM 139 mmol/L (136-145); TCO2 23 mmol/L (25-35)
[2018-03-18] MEDS: PRINZIDE 20/12.5MG PO SCH (07:59)
[2018-03-18] MEDS: PERIDEX MT SCH (08:00)
[2018-03-18] MEDS: NS 1,000 ML IV SCH ×2 (08:01→09:10)
[2018-03-18] MEDS ORDERED: FERROUS SULFATE PO SCH ×2 (09:00)
[2018-03-18] MEDS ORDERED: NORCO-7.5 PO PRN (10:40)
[2018-03-18 13:05] VITALS: BP 142/91
--- NOTE | 2018-03-18 14:32 | GENERAL SURGERY PROGRESS NOTE ---
DATE: 03/18/2018 SUBJECTIVE: Doing well. Bowels are functioning. Pain is controlled. OBJECTIVE: Vital Signs: Pulse 87, blood pressure 155/97. She is tolerating clear liquids. General: She is alert. Abdomen: Soft. Incision is intact. LABS: White count 5, hematocrit 29. Creatinine 0.4, potassium 3.3. ASSESSMENT AND PLAN: A 47-year-old female status post bowel resection. Her ileus is resolved. We will give her a soft diet and encourage her to be out of bed. She has been given potassium. cc: Audrey Kimble MD
--- NOTE | 2018-03-19 00:34 | DISCHARGE SUMMARY ---
ADMISSION DATE: 03/15/2018 DISCHARGE DATE: 03/18/2018 CONSULTATIONS: Dr. Tolu Bender with General Surgery. PERTINENT PROCEDURES: 1. Abdomen pelvis CT thickening of several loops of distal bowel in the pelvis with adjacent mesenteric edema and distention of the more proximal loops of small bowel, consider enteritis and associated ileus versus mesenteric volvulus with proximal partial small- bowel obstruction. 2. Diagnostic laparoscopy converted to exploratory laparotomy for small bowel resection with stapled sgik-je-[id number] function end to end anastomosis by Dr. Tolu Bender for ischemic bowel secondary to adhesions. DISCHARGE DIAGNOSIS: 1. Ischemic bowel secondary to adhesions, patient underwent initially a diagnostic laparoscopy converted to exploratory laparotomy with small bowel resection with stapled mwsw-ol-hnhp functional end-to-end anastomosis by Dr. Tolu Bender. She does have returning bowel function. She was initiated on clear liquids and tolerating. 2. Hypertension, patient has been started on Vasotec, need to follow up with her PCP Dr. Isaac Romero. 3. History of anxiety and depression. Patient will continue on home Xanax . 4. Fluid volume depletion resolved. 5. Mild hypokalemia. She has had supplementation. HOSPITAL COURSE: Briefly Ms. Marley is a 47-year-old female who carries a past medical history of hypertension, anxiety and panic disorder who presented to the ED with a sudden onset of abdominal pain. She had a hysterectomy 2 months prior as well as history of IBS. She started out with diarrhea, continued to have worsening pain, she came to the ED. A CT scan was performed. 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 General surgery was brought on board. She was given pain medications and antiemetics and initially underwent a diagnostic laparoscopy that converted to exploratory laparotomy. They found ischemic bowel with secondary to adhesions. She underwent a small bowel resection with stapled hhpa-lj-jwrm functional end-to-end anastomosis. She was initiated on a clear liquid diet. She has had return of bowel function and she will be discharged home today with self-care. She will continue to follow up with Dr. Tolu Bender in a week as well as her primary care provider Dr. Isaac Romero. DISCHARGE DIET: GI soft. DISCHARGE MEDICATIONS: 1. Xanax 0.5 mg p.o. p.r.n. 2. Icar C 65 mg p.o. daily. 3. Lisinopril/hydrochlorothiazide 20/12.5 mg tablet 1 each p.o. daily. 4. Prilosec 40 mg p.o. daily. 5. Zoloft 100 mg p.o. at bedtime. FOLLOWUP: Ms. Thomason is being discharged back home with self-care. She is to follow up Dr. Tolu Bender in 1 week as well as her primary care provider Dr. Isaac Romero. She can return to the ED or call 911 for any worsening of symptoms . Dictated by CHRISTINA Canchola for Mike Sanchez MD Addendum: Patient seen and examined by myself. Agree with CHRISTINA note. It reflects my assessment and plan. Patient is being discharged in stable condition. Will be seen by her primary surgeon Dr. Bender in a week. cc: Isaac Romero MD MTDD
== END 2018-03-18 15:19 | disposition home or self-care (01) | DRG 330 ==
LOC: SUPCPDRO → ED 21:43 → EDIPHOLD 03-15 01:29 → SUATTDRO 03-15 01:29 → 4N 03-15 07:45
PROVIDERS: ATTEND Internal Medicine
CPT/HCPCS: 74019; 74020; 74177; 80048; 80053; 81001; 82948; 83605; 83690; 83735; 85025; 85610; 85730; 86850; 86900; 86901; 87040; 87070; 87075; 87205; 88307; 93005; 94761; 94799; 96361; 96365; 96366; 96367; 96368; 96375; 96376; 99285; A9270; C9113; C9290; J0131; J0330; J0595; J1200; J1644; J2060; J2175; J2250; J2405; J2543; J2550; J3010; J3475; J3480; J7030; J7120; Q9967; S0020; S0164; XXXXX